=== PATIENT | female | born 1945 | race Caucasian/White ===

== ENCOUNTER 2018-10-10 22:44 | Inpatient (IN) | payer MEDICARE, MEDICAID, SELFPAY ==
[2018-10-10 22:45] VITALS: BP 177/87; PULSE 71; RESP 14; TEMP 36.8; O2SAT 97; BMI 40.3
[2018-10-10] MEDS: fentaNYL 100 MCG/2 ML Ampul 50 MCG IV (23:30)
[2018-10-10] MEDS: 0.9% Normal Saline 1,000 ML 150 ML IV (23:30)
[2018-10-10] MEDS: Ondansetron 4 MG/2 ML Vial IV (23:30)
--- NOTE | 2018-10-10 23:44 | ED.VISSUMM ---
- ER Visit Summary Date of Service: 10/10/18 Chief Complaint: Small bowel obstruction History of Present Illness: The patient is a 72 F who was sent from [facility] for partial small bowel obstruction. Dr. Carrillo requested the patient be seen in the ED. Patient reports developing abdominal pain, nausea, vomiting after eating canned sausage for lunch. Patient is poor historian. As best we can tell from patient and prior records she has a history of CHF, high cholesterol, hypertension, diabetes. She is a history of A. fib but not currently on anticoagulants. She has a history of left-sided breast cancer for which she underwent lumpectomy and endometrial cancer. She has had a full hysterectomy along with a cholecystectomy. Physical Examination: Blood pressure is 177/87, temperature 98.3, heart rate 71, respiratory rate 14, pulse ox 97% on room air. Patient sitting upright in bed she is very anxious. Heart is regular rate and rhythm. Lung sounds are clear. Abdomen is soft with mild diffuse tenderness. She has slight distention. Hypoactive bowel sounds noted. Test Results: Lab work and urinalysis from outside facility are reviewed. CT scan with contrast at outside hospital reveals partial small bowel obstruction. There is a fluid-filled dilated small bowel proximally. The transition point appears to be in the right pelvis. Surgical sutures associated with bowel at the transition point. Emergency Department Course and Treatment: Patient was ordered IV fluids, fentanyl, Zofran. Patient was seen in the ED by Dr. Carrillo will be admitted to his service on [facility]. Treatment Plan: [] Disposition: Admit Impression: Partial small bowel obstruction This note was generated with [employer] dictation software. It may contain incorrect words, spelling, and punctuation that were not noted in review of the chart prior to signing ED Disposition - Plan for ED Patient: Referrals: Chavez Luna MD [Primary Care Provider] -
--- NOTE | 2018-10-10 23:45 | PCM.HP.STD ---
Problem List (1) Small bowel obstruction Status: Acute History of Present Illness Date of Admission: 10/10/18 Chief Complaint: Abdominal pain and vomiting The patient is a 72 year old F was transferred from an outside emergency room for nausea and vomiting and abdominal pain. She reports she had some canned meat earlier today and about an hour after that she developed vomiting as well as lower abdominal pain. She says her last bowel movement was yesterday and she does not remember last time she passed gas. She says she has never had a bowel obstruction in the past. She is a very poor historian and does not remember her surgeries or much of her medical history. She has no recollection of her medications. She denies any dysuria or cough. Past Medical History Past Medical History (Chronic Problems): Chronic Problems Diabetes mellitus (Chronic) Obesity (Chronic) Hyperlipidemia (Chronic) Benign hypertension (Chronic) Allergies celecoxib [From Celebrex] Allergy (Verified 10/10/18 22:56) Anaphylaxis Penicillins Allergy (Verified 10/10/18 22:56) Rash rofecoxib [From Vioxx] Allergy (Verified 10/10/18 22:56) Anaphylaxis Home Medications: Ambulatory Orders Medication Instructions Recorded Atenolol 50 mg PO DAILY 10/28/15 Oxycodone HCl/Acetaminophen 1 - 2 tablet PO Q4H PRN PRN #30 10/29/15 [Percocet 5/325] tablet Aspirin [Aspirin, Baby] 81 mg PO DAILY@0800 04/08/16 Cholecalciferol (Vitamin D3) 50,000 unit PO QWEEK 04/08/16 [Vitamin D] Losartan/Hydrochlorothiazide 1 each PO DAILY 04/08/16 [Losartan-Hctz 50-12.5 mg Tab] Oxycodone HCl/Acetaminophen 1 - 2 tablet PO Q4H PRN PRN #12 04/08/16 [Percocet 5/325] tablet Tamoxifen Citrate [Nolvadex] 20 mg PO DAILY 04/08/16 predniSONE tablet 20 mg PO DAILY@0800 04/08/16 Surgical History: - - Patient is a very poor historian. She reports she has had 5 surgeries but does not member what they are. 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 Denies: Constipation, Diarrhea, Dyspepsia Genitourinary: Denies: Dysuria Musculoskeletal: Denies: Joint Tenderness Skin: Denies: Jaundice Neurological: Reports: Balance problems, Confusion. Denies: Headaches Unable to obtain accurate/complete ROS d/t: Patient is an extremely poor historian. VTE Information - Inpt Only VTE Present on Admission: No VTE Mechan Device Prophylaxis: SCD's Patient Problems: Active and Suspected Problems Small bowel obstruction (Acute) - Physical Exam General: Alert, No apparent distress, Confused HEENT: Atraumatic Oral: Dry Mucosa Neck: No JVD Lungs: Normal air movement Cardiovascular: Regular rate, Regular Rhythm Abdomen: Soft, Non-Distended, Tender - Diffusely mildly tender. No guarding or rebound. Extremities: No clubbing Skin: No rashes Musculoskeletal: No Muscle Wasting Neurological: Cranial nerves II-XII grossly intact Psych/Mental Status: Normal Affect Vital Signs Temp Pulse Resp BP Pulse Ox 98.3 F 71 14 177/87 H 97 10/10/18 22:45 10/10/18 22:45 10/10/18 22:45 10/10/18 22:45 10/10/18 22:45 Oxygen Delivery Method Room Air Weight: 250 lb Body Mass Index (BMI) 40.3 Assessment/Plan All Active Problems Small bowel obstruction (Acute) 72-year-old female with abdominal pain and vomiting 1. Patient was transferred from outside ER. She had labs done there that showed normal white count and an elevated creatinine of 1.4. Their clean catch was contaminated. They did a CT scan which showed mildly dilated loops of small bowel with a possible transition point in the right pelvis. I reviewed the CT scan her stomach does not look very distended nor does her proximal small bowel. 2. Patient may have small bowel obstruction, ileus, food poisoning. I am rechecking a UA and urine culture. Recheck labs in the morning as well as a KUB. I will keep her n.p.o. on IV fluids overnight. She is unable to recall her medication list but I did find recent refills on atenolol and losartan and I will start those up. No indication for emergent surgery at this time. Mateusz Carrillo MD Pager: [facility] [address] [place] [address], [address] [place] [address] Office:
--- NOTE | 2018-10-10 23:51 | HP.PCM_ITS ---
Problem List (1) Small bowel obstruction Status: Acute History of Present Illness Date of Admission: 10/10/18 Chief Complaint: Abdominal pain and vomiting The patient is a 72 year old F was transferred from an outside emergency room for nausea and vomiting and abdominal pain. She reports she had some canned meat earlier today and about an hour after that she developed vomiting as well as lower abdominal pain. She says her last bowel movement was yesterday and she does not remember last time she passed gas. She says she has never had a bowel obstruction in the past. She is a very poor historian and does not remember her surgeries or much of her medical history. She has no recollection of her medications. She denies any dysuria or cough. Past Medical History Past Medical History (Chronic Problems): Chronic Problems Diabetes mellitus (Chronic) Obesity (Chronic) Hyperlipidemia (Chronic) Benign hypertension (Chronic) Allergies celecoxib [From Celebrex] Allergy (Verified 10/10/18 22:56) Anaphylaxis Penicillins Allergy (Verified 10/10/18 22:56) Rash rofecoxib [From Vioxx] Allergy (Verified 10/10/18 22:56) Anaphylaxis Home Medications: Ambulatory Orders Medication Instructions Recorded Atenolol 50 mg PO DAILY 10/28/15 Oxycodone HCl/Acetaminophen 1 - 2 tablet PO Q4H PRN PRN #30 10/29/15 [Percocet 5/325] tablet Aspirin [Aspirin, Baby] 81 mg PO DAILY@0800 04/08/16 Cholecalciferol (Vitamin D3) 50,000 unit PO QWEEK 04/08/16 [Vitamin D] Losartan/Hydrochlorothiazide 1 each PO DAILY 04/08/16 [Losartan-Hctz 50-12.5 mg Tab] Oxycodone HCl/Acetaminophen 1 - 2 tablet PO Q4H PRN PRN #12 04/08/16 [Percocet 5/325] tablet Tamoxifen Citrate [Nolvadex] 20 mg PO DAILY 04/08/16 predniSONE tablet 20 mg PO DAILY@0800 04/08/16 Surgical History: - - Patient is a very poor historian. She reports she has had 5 surgeries but does not member what they are. 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 Denies: Constipation, Diarrhea, Dyspepsia Genitourinary: Denies: Dysuria Musculoskeletal: Denies: Joint Tenderness Skin: Denies: Jaundice Neurological: Reports: Balance problems, Confusion. Denies: Headaches Unable to obtain accurate/complete ROS d/t: Patient is an extremely poor historian. VTE Information - Inpt Only VTE Present on Admission: No VTE Mechan Device Prophylaxis: SCD's Patient Problems: Active and Suspected Problems Small bowel obstruction (Acute) - Physical Exam General: Alert, No apparent distress, Confused HEENT: Atraumatic Oral: Dry Mucosa Neck: No JVD Lungs: Normal air movement Cardiovascular: Regular rate, Regular Rhythm Abdomen: Soft, Non-Distended, Tender - Diffusely mildly tender. No guarding or rebound. Extremities: No clubbing Skin: No rashes Musculoskeletal: No Muscle Wasting Neurological: Cranial nerves II-XII grossly intact Psych/Mental Status: Normal Affect Vital Signs Temp Pulse Resp BP Pulse Ox 98.3 F 71 14 177/87 H 97 10/10/18 22:45 10/10/18 22:45 10/10/18 22:45 10/10/18 22:45 10/10/18 22:45 Oxygen Delivery Method Room Air Weight: 250 lb Body Mass Index (BMI) 40.3 Assessment/Plan All Active Problems Small bowel obstruction (Acute) 72-year-old female with abdominal pain and vomiting 1. Patient was transferred from outside ER. She had labs done there that showed normal white count and an elevated creatinine of 1.4. Their clean catch was contaminated. They did a CT scan which showed mildly dilated loops of small bowel with a possible transition point in the right pelvis. I reviewed the CT scan her stomach does not look very distended nor does her proximal small bowel. 2. Patient may have small bowel obstruction, ileus, food poisoning. I am rechecking a UA and urine culture. Recheck labs in the morning as well as a KUB. I will keep her n.p.o. on IV fluids overnight. She is unable to recall her medication list but I did find recent refills on atenolol and losartan and I will start those up. No indication for emergent surgery at this time. Mateusz Carrillo MD Pager: [facility] [address] [place] [address], [address] [place] [address] Office:
[2018-10-11 00:10] LABS: Mucous, Urine 0 SEEN /hpf (<or=2+); Red Blood Cells-Urine 0 SEEN /hpf (0-5); Squamous Epithelial Cells - UA 0 SEEN /hpf (5-10)
[2018-10-11 00:12] LABS: Color, Urine Yellow (Yellow); Glucose, Dipstick Normal (Normal); Ketone-Dipstick Negative (Negative); Leukocyte Esterase-Dipstick 500 /ul (Negative); Nitrite-Dipstick Negative (Negative); Occult Blood-Urine 25 /ul (Negative); Protein-Dipstick Negative (Negative); Specific Gravity, Urine 1.015 (1.002-1.030); Urine Bilirubin Dipstick Negative (Negative); Urine Clarity Sl. Cloudy (Clear); Urine Urobilinogen Normal (Normal)
[2018-10-11 00:35] VITALS: BMI 34.7; BMI 34.8
[2018-10-11 00:35] LABS: Bacteria 4+ /hpf (None Seen); White Blood Cells 10-25 SEEN /hpf (0-5)
[2018-10-11 00:45] VITALS: BP 127/64; PULSE 70; RESP 18; TEMP 36.7; O2SAT 98
[2018-10-11] MEDS: Morphine 2 MG/ML Syringe IV ×4 (00:57→20:31)
[2018-10-11] MEDS: 0.9% Saline Lock 10 ML Syringe IV (01:24)
[2018-10-11] MEDS: 0.9% Normal Saline 1,000 ML 999 ML IV (01:24)
[2018-10-11 01:44] LABS: Absolute Neutrophil Count 6.7 X10^3/uL (2.0-7.7); Basophil# 0.03 X10^3/uL; Basophil% 0.4 % (0-1); Eosinophils% 1.3 % (0-5); Hematocrit 32.1 % (37-47); Hemoglobin 10.2 g/dl (12.0-15.0); Lymphocyte % 6.3 % (19-41); Mean Corp Hgb Conc 31.8 g/gl (32-36); Mean Corpuscular Hgb 29.4 pg (27.0-32.0); Mean Corpuscular Volume 92.5 fL (81-99); Mean Platelet Vol. 10.1 fl (6.2-12.0); Monocyte# 0.54 X10^3/uL; Monocyte% 6.8 % (0-10); Neutrophil # 6.74 X10^3/uL (2.7-7.7); Neutrophil % 84.9 % (47-70); Platelet Count 176 K/mm3 (150-450); RBC Distribution Width CV 13.4 % (11.6-14.6); RBC Distribution Width SD 43.5 fl (35.1-43.9); Red Blood Count 3.47 M/mm3 (4.2-5.4); White Blood Count 7.9 K/mm3 (4.4-11.0)
[2018-10-11 01:45] LABS: Differential Indicated SCAN CRITERIA MET; POSITIVE COUNT NO; POSITIVE DIFFERENTIAL YES; POSITIVE MORPHOLOGY NO
[2018-10-11 01:53] LABS: AST(SGOT) 15 U/L (15-37); Alanine Aminotransfer ALT/SGPT 14 U/L (13-56); Alkaline Phosphatase 61 U/L (45-117); Anion Gap 6 (5-15); BUN 28 mg/dL (7-18); BUN/Creat Ratio 22.8 RATIO (10-20); Chloride 110 mmol/L (98-107); Creatinine, Serum 1.23 mg/dL (0.55-1.02); EST Glomerular Filtration Rate 45 mL/min (>60); Est Glom Filt Rate - Afr Amer 55 mL/min (>60); Estimated Creatinine Clearance 37.56 ml/min; Globulin 3.1 g/dL (2.2-4.2); Glucose 118 mg/dL (74-106); Potassium 3.9 mmol/L (3.5-5.1); Protein, Total 6.1 g/dL (6.4-8.2); Sodium Level 141 mmol/L (136-145)
[2018-10-11 04:40] VITALS: BP 140/62; PULSE 69; RESP 16; TEMP 36.5; O2SAT 99
--- NOTE | 2018-10-11 05:55 | RAD_ITS ---
STUDY: X-RAY - ABDOMEN/PELVIS REASON FOR EXAM: Female, 72 years old. Ileus versus small bowel obstruction. TECHNIQUE: Two AP supine views of the abdomen and pelvis. COMPARISON: None. FINDINGS: Elevation of the right hemidiaphragm. There is an unremarkable bowel gas pattern. The patient is status post cholecystectomy. Findings suggestive of a right-sided staghorn calculus. Contrast is seen within the urinary bladder most likely from intravenous contrast administration. There are diffuse degenerative changes of the visualized lumbar spine. RAD/Abdomen Single View (Portable) IMPRESSION: Nonspecific bowel gas pattern. Findings suggestive of a right sided staghorn calculus. Electronically Signed: Bhanu Sellers, at 9:16 EDT , Service support ,
[2018-10-11] MEDS: Ondansetron 4 MG/2 ML Vial IV ×3 (06:56→20:30)
[2018-10-11] MEDS: 0.9% Normal Saline 1,000 ML 125 ML IV ×2 (06:56→20:59)
[2018-10-11] MEDS: 0.9% NaCl Peripheral Flush Adult/Peds IV (06:57)
--- NOTE | 2018-10-11 08:07 | PCM.PN.SRG ---
Patient Problems: Active and Suspected Problems Small bowel obstruction (Acute) Subjective: Patient told the overnight nurse that she was passing flatus and she is not having any nausea this morning. She is still complaining of abdominal pain. - Physical Exam General: Alert, No apparent distress Neck: No JVD Lungs: Normal air movement Cardiovascular: Regular rate, Regular Rhythm Abdomen: Soft, Non-Distended, Tender Vital Signs Temp Pulse Resp BP Pulse Ox 97.7 F L 69 16 140/62 H 99 10/11/18 04:40 10/11/18 04:40 10/11/18 04:40 10/11/18 04:40 10/11/18 04:40 Oxygen Delivery Method Room Air Weight: 215 lb 6.266 oz Body Mass Index (BMI) 34.7 Intake and Output for Last 24 Hours 10/09/18 10/10/18 10/11/18 23:59 23:59 23:59 Intake Total 1539 / 1539 Balance 1539 / 1539 Laboratory Tests Past 24 Hrs 10/11/18 10/11/18 10/11/18 00:02 00:10 00:10 WBC Cancelled Corrected WBC Cancelled RBC Cancelled Hgb Cancelled Hct Cancelled MCV Cancelled MCH Cancelled MCHC Cancelled RDW Cancelled RDW Differential Cancelled Plt Count Cancelled MPV Cancelled Immature Gran % (Auto) Cancelled Neut % (Auto) Cancelled Lymph % (Auto) Cancelled Howell % (Auto) Cancelled Eos % (Auto) Cancelled Baso % (Auto) Cancelled Immature Gran # (Auto) Cancelled Absolute Neuts (auto) Cancelled Absolute Lymphs (auto) Cancelled Absolute Monos (auto) Cancelled Total Counted Cancelled Neutrophils % (Manual) Cancelled Band Neutrophils % Cancelled Lymphocytes % (Manual) Cancelled Monocytes % (Manual) Cancelled Eosinophils % (Manual) Cancelled Basophils % (Manual) Cancelled Metamyelocytes % Cancelled Myelocytes % Cancelled Promyelocytes % Cancelled Blast Cells % Cancelled Plasma Cell % (Manual) Cancelled Other Cells % Cancelled Lymphocytes # Cancelled Nucleated RBCs/100 WBC Cancelled Differential Comment Cancelled Diff Path Review Cancelled Hypersegmented Neuts Cancelled Atypical Lymphocytes Cancelled Reactive Lymphocytes Cancelled Smudge Cells Cancelled Eosinophilia # Cancelled Basophilia # Cancelled Toxic Granulation Cancelled Dohle Bodies Cancelled Jackeline Rods Cancelled Platelet Estimate Cancelled Plt Morphology Comment Cancelled RBC Morphology Cancelled Polychromasia Cancelled Hypochromasia Cancelled Poikilocytosis Cancelled Basophilic Stippling Cancelled Anisocytosis Cancelled Microcytosis Cancelled Macrocytosis Cancelled Spherocytes Cancelled Sickle Cells Cancelled Target Cells Cancelled Tear Drop Cells Cancelled Ovalocytes Cancelled Stomatocytes Cancelled [place] Bodies Cancelled [place] Cells Cancelled Bite Cells Cancelled Acanthocytes (Spur) Cancelled Rouleaux Cancelled Schistocytes Cancelled Sodium Cancelled Potassium Cancelled Chloride Cancelled Carbon Dioxide Cancelled Anion Gap Cancelled BUN Cancelled Creatinine Cancelled Estim Creat Clear Calc Cancelled Est GFR (MDRD) Af Amer Cancelled Est GFR (MDRD) Non-Af Cancelled BUN/Creatinine Ratio Cancelled Glucose Cancelled Calcium Cancelled Phosphorus Cancelled Magnesium Cancelled Total Bilirubin Cancelled AST Cancelled ALT Cancelled Alkaline Phosphatase Cancelled Total Protein Cancelled Albumin Cancelled Globulin Cancelled Albumin/Globulin Ratio Cancelled Urine Color Yellow Urine Clarity Sl. Cloudy Urine pH 5.0 Ur Specific [place] 1.015 Urine Protein Negative Urine Glucose (UA) Normal Urine Ketones Negative Urine Occult Blood 25 H Urine Nitrite Negative Urine Bilirubin Negative Urine Urobilinogen Normal Ur Leukocyte Esterase 500 H Urine RBC 0 SEEN Urine WBC 10-25 SEEN Ur Squamous Epith Cells 0 SEEN Urine Bacteria 4+ Urine Mucus 0 SEEN 10/11/18 10/11/18 01:20 01:20 WBC 7.9 Corrected WBC RBC 3.47 L Hgb 10.2 L Hct 32.1 L MCV 92.5 MCH 29.4 MCHC 31.8 L RDW 13.4 RDW Differential 43.5 Plt Count 176 MPV 10.1 Immature Gran % (Auto) 0.300 Neut % (Auto) 84.9 H Lymph % (Auto) 6.3 L Howell % (Auto) 6.8 Eos % (Auto) 1.3 Baso % (Auto) 0.4 Immature Gran # (Auto) Absolute Neuts (auto) 6.7 Absolute Lymphs (auto) 0.50 L Absolute Monos (auto) Total Counted Not Reportable Neutrophils % (Manual) Band Neutrophils % Lymphocytes % (Manual) Monocytes % (Manual) Eosinophils % (Manual) Basophils % (Manual) Metamyelocytes % Myelocytes % Promyelocytes % Blast Cells % Plasma Cell % (Manual) Other Cells % Lymphocytes # Nucleated RBCs/100 WBC Differential Comment Diff Path Review Hypersegmented Neuts Atypical Lymphocytes Reactive Lymphocytes Smudge Cells Eosinophilia # Basophilia # Toxic Granulation Dohle Bodies Jackeline Rods Platelet Estimate Plt Morphology Comment RBC Morphology Polychromasia Hypochromasia Poikilocytosis Basophilic Stippling Anisocytosis Microcytosis Macrocytosis Spherocytes Sickle Cells Target Cells Tear Drop Cells Ovalocytes Stomatocytes [place] Bodies [place] Cells Bite Cells Acanthocytes (Spur) Rouleaux Schistocytes Sodium 141 Potassium 3.9 Chloride 110 H Carbon Dioxide 25.0 Anion Gap 6 BUN 28 H Creatinine 1.23 H Estim Creat Clear Calc 37.56 Est GFR (MDRD) Af Amer 55 L Est GFR (MDRD) Non-Af 45 L BUN/Creatinine Ratio 22.8 H Glucose 118 H Calcium 8.0 L Phosphorus 3.0 Magnesium 2.0 Total Bilirubin 0.40 AST 15 ALT 14 Alkaline Phosphatase 61 Total Protein 6.1 L Albumin 3.0 L Globulin 3.1 Albumin/Globulin Ratio 1.0 Urine Color Urine Clarity Urine pH Ur Specific [place] Urine Protein Urine Glucose (UA) Urine Ketones Urine Occult Blood Urine Nitrite Urine Bilirubin Urine Urobilinogen Ur Leukocyte Esterase Urine RBC Urine WBC Ur Squamous Epith Cells Urine Bacteria Urine Mucus Medical Necessity - Tobacco Use Smoking Status: Never smoker Assessment/Plan All Active Problems Small bowel obstruction (Acute) 72-year-old female small bowel obstruction versus ileus 1. Patient is not having any nausea and her KUB from this morning shows gas in the colon. She told the overnight nurse she is passing gas. I will order Gastrografin small bowel follow-through to ensure that she is not having a partial obstruction. Patient may also be having an ileus. Her dilation of her small bowel is very mild and it could also be gastroenteritis. 2. The patient's UA showed leukoesterase as well as WBC. Culture is pending. I will empirically start her on IV Cipro for UTI. Mateusz Carrillo MD Pager: [facility] [address] [place] [address], [address] [place] [address] Office:
[2018-10-11 09:00] VITALS: BP 155/62; PULSE 69; RESP 16; TEMP 36.3; O2SAT 99
[2018-10-11] MEDS: Ciprofloxacin 400 MG/200 ML BAG 200 MG IV ×2 (09:12→21:00)
--- NOTE | 2018-10-11 10:30 | NURSING ---
pt off floor at this time for small bowel series
--- NOTE | 2018-10-11 10:35 | RAD_ITS ---
CLINICAL HISTORY: Female, 72 years old. Possible bowel obstruction. PROCEDURE: The patient ingested 150 mL of Gastrografin and 150 mL of water. A small bowel follow-through examination was then obtained. 11 images were obtained. Findings: On the oceanographer assistant film, small amount of gas is seen within the colon. Contrast is seen within the urinary bladder from prior intravenous contrast menstruation. Amorphous calcifications are seen in the left mid abdomen most likely secondary to a staghorn calculus. There is evidence of multilevel disc space narrowing and spondylosis. There is distention of the stomach with the ingested Gastrografin. There is delayed transit throughout the small bowel. Imaging was obtained up to 2 hours following ingestion of oral contrast. Contrast is seen in the distal small bowel. The patient refused further imaging. RAD/Small Bowel Series Only IMPRESSION: Distention of the stomach with the ingested Gastrografin. Small amount of oral contrast is seen within slightly dilated small bowel loops as described. Gastric outlet obstruction or gastroparesis should be ruled out. Electronically Signed: Bhanu Sellers, at 15:23 EDT , Service support ,
[2018-10-11 14:19] VITALS: BP 149/56; PULSE 68; RESP 14; TEMP 36.8; O2SAT 95
[2018-10-11] MEDS: hydroCHLOROthiazide 12.5mg 12.5 MG PO (14:25)
[2018-10-11] MEDS: Losartan Potassium 50 MG Tablet PO (14:26)
[2018-10-11] MEDS: Atenolol 50 MG Tablet PO (14:26)
--- NOTE | 2018-10-11 16:41 | CHAPLAIN ---
patient was out of her room at time of attempted visit
[2018-10-11 20:20] VITALS: BP 158/74; PULSE 70; RESP 16; TEMP 37.2; O2SAT 97
[2018-10-11 22:37] VITALS: PULSE 70; RESP 16; O2SAT 97
[2018-10-12] VITALS (11 sets, daily range): BP systolic 119–150; BP diastolic 55–88; PULSE 66–78; RESP 16–18; TEMP 36.8–37.4; O2SAT 94–99
--- NOTE | 2018-10-12 00:21 | NURSING ---
pt confused, pulled her iv out and took all her clothes off. inc of urine, nilda care given. vomiting, and stating she feels awful. will call dr. tang
[2018-10-12] MEDS: proMETHazine 25 MG/ML Syringe 12.5 MG IV (01:13)
[2018-10-12] MEDS: DiphenhydrAMINE 50 MG/ML Syringe 25 MG IV ×2 (01:31→08:51)
--- NOTE | 2018-10-12 01:45 | NURSING ---
DR GARCIA CALLED, ORDERED, AN NG TO BE PLACED TO LIS. ADITI AND MAMI ALSO GIVEN PER ORDER.
--- NOTE | 2018-10-12 02:05 | RAD_ITS ---
STUDY: X-RAY - ABDOMEN/PELVIS REASON FOR EXAM: Female, 72 years old. Nasogastric tube placement. TECHNIQUE: Single AP view of the abdomen / pelvis. COMPARISON: None. FINDINGS: The tip of the nasogastric tube is within the body of the stomach. Oral contrast is seen within the left hemicolon. RAD/Abdomen Single View (Portable) IMPRESSION: The tip of the nasogastric tube is in the body of the stomach. Electronically Signed: Bhanu Sellers, at 8:44 EDT , Service support ,
--- NOTE | 2018-10-12 02:43 | NURSING ---
called dr. flood for soft wrist restraints d/t the pt being confused and trying to pull the ng out
--- NOTE | 2018-10-12 03:00 | NURSING ---
PT PLACED IN SOFT WRIST RESTRAINTS TO PREVENT HER FORM PULLING CHANTELLE NG OUT D/T CONFUSION. PTS SON CALLED BACK AND WAS NOTIFIED OF THE NEED TO PLACE THE PT IN RESTRAINTS.
[2018-10-12] MEDS: Morphine 2 MG/ML Syringe IV (03:20)
[2018-10-12 05:27] LABS: Absolute Lymphocyte Count 0.45 X10^3/ul (0.83-4.51); Absolute Neutrophil Count 9.7 X10^3/uL (2.0-7.7); Basophil# 0.01 X10^3/uL; Basophil% 0.1 % (0-1); Hematocrit 32.1 % (37-47); Hemoglobin 10.8 g/dl (12.0-15.0); Lymphocyte # 0.45 X10^3/ul (4.0); Lymphocyte % 4.1 % (19-41); Mean Corp Hgb Conc 33.6 g/gl (32-36); Mean Corpuscular Hgb 29.8 pg (27.0-32.0); Mean Corpuscular Volume 88.7 fL (81-99); Mean Platelet Vol. 9.9 fl (6.2-12.0); Monocyte# 0.77 X10^3/uL; Neutrophil # 9.73 X10^3/uL (2.7-7.7); Neutrophil % 88.6 % (47-70); Platelet Count 190 K/mm3 (150-450); RBC Distribution Width CV 13.6 % (11.6-14.6); RBC Distribution Width SD 44.5 fl (35.1-43.9); Red Blood Count 3.62 M/mm3 (4.2-5.4)
[2018-10-12 05:32] LABS: Differential Indicated SCAN CRITERIA MET; POSITIVE COUNT NO; POSITIVE DIFFERENTIAL YES; POSITIVE MORPHOLOGY NO
[2018-10-12 05:43] LABS: Anion Gap 8 (5-15); BUN 24 mg/dL (7-18); BUN/Creat Ratio 22.2 RATIO (10-20); Calcium,Total 8.6 mg/dL (8.5-10.1); Chloride 113 mmol/L (98-107); Creatinine, Serum 1.08 mg/dL (0.55-1.02); EST Glomerular Filtration Rate 53 mL/min (>60); Est Glom Filt Rate - Afr Amer 64 mL/min (>60); Estimated Creatinine Clearance 42.78 ml/min; Glucose 136 mg/dL (74-106); Potassium 3.5 mmol/L (3.5-5.1); Sodium Level 142 mmol/L (136-145)
--- NOTE | 2018-10-12 05:55 | RAD_ITS ---
STUDY: X-RAY - ABDOMEN/PELVIS REASON FOR EXAM: Female, 72 years old. Small bowel obstruction. TECHNIQUE: Two AP supine views of the abdomen and pelvis. COMPARISON: Comparison is made with prior examination done earlier today. FINDINGS: The tip of the nasogastric tube is in the body of the stomach. Contrast is seen within the colon. Residual contrast filled slightly dilated small bowel loops. This may represent an ileus pattern. The visualized liver, spleen and kidneys are grossly normal in size and morphology. There is evidence of prior ventral hernia repair with a mesh. There are diffuse degenerative changes of the visualized lumbar spine. RAD/Abdomen Single View (Portable) IMPRESSION: Oral contrast is seen throughout the colon. Residual contrast is seen within slightly dilated small bowel loops. This may represent an ileus pattern. Electronically Signed: Bhanu Sellers, at 13:33 EDT , Service support ,
[2018-10-12] MEDS: 0.9% Normal Saline 1,000 ML 125 ML IV (06:43)
[2018-10-12] MEDS: 0.9% NaCl Peripheral Flush Adult/Peds IV (08:52)
--- NOTE | 2018-10-12 09:27 | CON.PCM_ITS ---
Problem List (1) Altered mental status Status: Acute (2) Normochromic normocytic anemia Status: Acute (3) UTI (urinary tract infection) Status: Acute (4) Small bowel obstruction Status: Acute (5) Benign hypertension Status: Chronic (6) Diabetes mellitus Status: Chronic Qualifiers: Diabetes mellitus type: type 2 (7) Hyperlipidemia Status: Chronic (8) Obesity Status: Chronic Qualifiers: Obesity type: due to excess calories Obesity classification: adult class 1 (BMI 30 - 34.9) (9) Breast cancer in situ Status: Chronic Qualifiers: Carcinoma in situ of breast type: intraductal Laterality: right Qualified Code(s): 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 Carrillo for confusion - Reason for Consult The patient is a 72-year-old female admitted to [facility] from the [facility] emergency department on 10/10/2018 with complaints of sudden onset of nausea/vomiting/abdominal pain. She was admitted by Dr. Carrillo. She had eaten some canned meat earlier in the day and approximately 1 hour after eating developed vomiting and lower abdominal pain. She was a poor historian and was unable to remember her medications, her medical history or her previous surgeries. Her past medical history is significant for diabetes mellitus type 2, morbid obesity, hyperlipidemia, ductal carcinoma of the left breast diagnosed in 2010 and ductal carcinoma in situ of the right breast diagnosed in 2014, uterine cancer (status post ALEXIS/BSO) and HTN. Vital signs at admission to the hospital were temp 98.3, pulse rate 71, blood pressure 177/87, respiratory rate 14 and she was 97-99% saturated on room air. Lab on 10/11/2018 showed a white blood cell count of 7.9 with 85% neutrophils. Hemoglobin was 10.2 with normochromic normocytic indices and a normal RDW. BUN was elevated at 28 and the creatinine was 1.23 and we have no baseline labs on this patient. Phosphorus and magnesium were within normal limits and the LFTs were unremarkable. A straight cath was performed for UA and it showed positive leukocyte esterase 10-25 WBCs per high-power field and 4+ bacteria. Urine was sent for culture. She was started on Cipro on 10/11/2018. A CT scan of the abdomen at the emergency department showed a partial small bowel obstruction with transition in the right pelvis. Incidental findings were a left renal cyst and a 9.0 cm right renal mass. A Gastrografin study was ordered by Dr. Carrillo and showed delayed transit but on KUB today there is contrast in the colon. She had a BM while I was in the room. She has become progressively more confused and agitated in the hospital. Has been getting MS about every 6-7 hours. I reviewed recent progress notes from Dr. Ahumada and will request records from her PCP, Chavez Luna. The patient is restrained and agitated. She is having visual hallucinations and talking to people who are not there. Tells me that she is at home. She can tell me her name and her age but, can not tell me the year or the date. MM are very dry, no mucosal lesions noted. No JVD, trachea midline, no cervical or supraclavicular nodes Lying flat in be without accessory muscle use or conversational dyspnea Lungs are CTA anterior and lateral. Heart - RRR, no MM appreciated but, difficult to hear over the patient talking. No gallop abdomen - soft, ND, no guarding with palpation, no masses. She had a liquid brown stool while I was in the room. No edema, no clubbing, cyanosis Skin-no rashes Neuro-moving all 4 extremities, no facial asymmetry, cranial nerves II through XII grossly intact, no focal neurologic deficits Confused, having visual hallucinations Impressions 1. pSBO vs ileus - being managed by Dr. Carrillo 2. UTI 3. delirium vs dementia with sundowning 4. History of left breast cancer diagnosed in 2010 and right breast cancer diagnosed in 2014. 5. History of uterine cancer-status post ALEXIS/BSO 6. Diabetes mellitus type 2 7. Hypertension 8. Normochromic normocytic anemia of uncertain etiology 9. Hyperlipidemia 10. Dehydration DC the Cipro and start rocephin - Cipro can increase confusion in the elderly Blood cultures, lactic acid now TSH, ammonia....will need a noncontrasted CTB when we get her calmed down Haldol 2 mg IV every 4 hours as needed agitation/delirium EKG now to evaluate QT interval Place the patient on telemetry Accu-Cheks every 6 hours with sliding scale insulin coverage Hemoccult stool Enteric pathogen panel Fecal leukocytes Recheck lab in the a.m. We will attempt to reach her son to discuss her baseline mental status Discussed with Dr. Carrillo
--- NOTE | 2018-10-12 09:56 | EKG12_ITS ---
Test Reason : HTN Blood Pressure : / mmHG Vent. Rate : 071 BPM Atrial Rate : 133 BPM P-R Int : 000 ms QRS Dur : 196 ms QT Int : 480 ms P-R-T Axes : 000 -64 101 degrees QTc Int : 521 ms Sinus tachycardia with complete heart block and Ventricular-paced rhythm Abnormal ECG When compared with ECG of 15-JUN-2011 10:49, Electronic ventricular pacemaker has replaced Atrial fibrillation Confirmed by TWYLA CALIX, LOUANN ([id number]), image editor ENRRIQUE ANGULO ([id number]) on 10/14/2018 1:50:22 PM Referred By: CHUYITA Confirmed By:LOUANN WAKEFIELD MD
--- NOTE | 2018-10-12 10:02 | RAD_ITS ---
STUDY: X-RAY CHEST REASON FOR EXAM: Female, 72 years old. Tachypnea. TECHNIQUE: Single AP portable view of the chest. COMPARISON: None. FINDINGS: Telemetry wires overlie the chest. There is an enteric tube extending down the esophagus and some left upper quadrant of the abdomen The lungs are mildly hypoexpanded. There is mild interstitial coarsening throughout both lungs most marked in the upper lobes. There is no demonstrated pleural abnormality. Normal size heart. Is a left-sided dual lead cardiac pacemaker. Normal mediastinum. There is mild hilar prominence. There is atherosclerotic calcification of the aortic arch with tortuosity. The thoracic spine is obscured by the mediastinum. There is degenerative osteoarthritis of the bilateral shoulders. There is no demonstrated abnormality of the visualized soft tissue structures of the upper abdomen. RAD/Chest 1 View (Portable) IMPRESSION: 1. Cardiac pacemaker. 2. Enteric tube as described. 3. Acute versus chronic interstitial changes. 4. Mild hilar prominence. Question lymphadenopathy. Electronically Signed: Kana Nava DO at 14:10 EDT Tel [phone], Service support ,
--- NOTE | 2018-10-12 10:36 | CASEMGMT ---
GABY ESPINOZA unable to complete CM assessment at this time d/t confusion/agitation at this time. Will attempt again later. Dr. Black did place call to son in [place] today and he states his brother, Alejandro, had in June and he was up here at that time and pt had some confusion then. [place] GABY ESPINOZA
--- NOTE | 2018-10-12 10:47 | PCM.PN.SRG ---
Patient Problems: Active and Suspected Problems Small bowel obstruction (Acute) Altered mental status (Acute) Normochromic normocytic anemia (Acute) UTI (urinary tract infection) (Acute) Breast cancer, left (Acute) 2010 treated with lobectomy, sentinel node biopsy, chemotherapy Subjective: Patient became more disoriented overnight. NG was placed after patient vomited. Patient had a bowel movement today. She complains of no abdominal pain or nausea now the NG is in. - Physical Exam General: No apparent distress, Confused, Disoriented Neck: No JVD Cardiovascular: Regular rate, Regular Rhythm Abdomen: Soft, Non Tender, Non-Distended Extremities: No clubbing Neurological: Cranial nerves II-XII grossly intact Vital Signs Temp Pulse Resp BP Pulse Ox 99.3 F H 71 18 130/88 H 94 10/12/18 07:00 10/12/18 07:00 10/12/18 07:00 10/12/18 07:00 10/12/18 07:00 Oxygen Delivery Method Room Air Weight: 215 lb 6.266 oz Body Mass Index (BMI) 34.7 Intake and Output for Last 24 Hours 10/10/18 10/11/18 10/12/18 23:59 23:59 23:59 Intake Total 2399 / 2399 513 / 513 Output Total 1350 / 1350 Balance 2379 / 2379 -837 / -837 Microbiology Past 72 Hours 10/11/18 00:02 Urine Culture - Preliminary Urine, Catheterized Culture exhibits no growth. 10/12/18 09:57 Stool Lactoferrin - Final Stool 10/12/18 09:57 Stool Occult Blood (AGNIESZKA) - Final Stool Laboratory Tests Past 24 Hrs 10/12/18 10/12/18 10/12/18 04:56 04:56 04:56 WBC 11.0 RBC 3.62 L Hgb 10.8 L Hct 32.1 L MCV 88.7 MCH 29.8 MCHC 33.6 RDW 13.6 RDW Differential 44.5 H Plt Count 190 MPV 9.9 Immature Gran % (Auto) 0.200 Neut % (Auto) 88.6 H Lymph % (Auto) 4.1 L [place] % (Auto) 7.0 Eos % (Auto) 0.0 Baso % (Auto) 0.1 Absolute Neuts (auto) 9.7 H Absolute Lymphs (auto) 0.45 L Total Counted Not Reportable Sodium 142 Potassium 3.5 Chloride 113 H Carbon Dioxide 21.0 Anion Gap 8 BUN 24 H Creatinine 1.08 H Estim Creat Clear Calc 42.78 Est GFR (MDRD) Af Amer 64 Est GFR (MDRD) Non-Af 53 L BUN/Creatinine Ratio 22.2 H Glucose 136 H Calcium 8.6 TSH Pending Free T4 Pending Clinical Impression(s) from Imaging Studies Small Bowel X-Ray 10/11/18 10:35 IMPRESSION: Distention of the stomach with the ingested Gastrografin. Small amount of oral contrast is seen within slightly dilated small bowel loops as described. Gastric outlet obstruction or gastroparesis should be ruled out. Electronically Signed: Bhanu Sellers, at 15:23 EDT , Service support , KUB X-Ray 10/12/18 02:05 IMPRESSION: The tip of the nasogastric tube is in the body of the stomach. Electronically Signed: Bhanu Sellers, at 8:44 EDT , Service support , Medical Necessity - Tobacco Use Smoking Status: Never smoker Assessment/Plan All Active Problems Small bowel obstruction (Acute) Altered mental status (Acute) Normochromic normocytic anemia (Acute) UTI (urinary tract infection) (Acute) Breast cancer, left (Acute) 72-year-old female ileus versus small bowel obstruction 1. Patient had contrast study that was done yesterday which did not show contrast progressing. I had planned on taking her for surgery today but on this morning's x-ray the contrast was completely in the colon and she did have a bowel movement this morning. On physical exam her abdomen is soft, nontender, nondistended. NG did put out bilious material. 2. The patient became more confused and disoriented. Given the fact that her white count did go up and she does have a left shift and her UA on admission showed bacteria. I am concerned that there may be some element of UTI going on. I started her on Cipro but that will be changed today as it is not helping. I did consult the hospitalist service for assistance with medical management. 3. Patient may be having an ileus from another infection versus partial small bowel obstruction. As the patient is in no distress with normal vitals and a nontender abdomen I will wait 24 more hours to make that decision. If the ceftriaxone helps and she continues to have bowel function I will see how she does. If anything changes overnight or fails to improve I will take her tomorrow for surgery. I discussed my plan with the patient's son and he is in agreement. Mateusz Carrillo MD Pager: [facility] [address] [place] [address], [address] [place] [address] Office:
[2018-10-12 10:48] LABS: T4 Free Direct 1.22 ng/dL (0.76-1.46)
[2018-10-12] MEDS: Atenolol 50 MG Tablet PO (10:48)
[2018-10-12] MEDS: Losartan Potassium 50 MG Tablet PO (10:48)
[2018-10-12] MEDS: Haloperidol Lactate 5 MG/ML Vial 2 MG IV ×2 (10:49→15:16)
--- NOTE | 2018-10-12 10:51 | PN.SURG_ITS ---
Patient Problems: Active and Suspected Problems Small bowel obstruction (Acute) Altered mental status (Acute) Normochromic normocytic anemia (Acute) UTI (urinary tract infection) (Acute) Breast cancer, left (Acute) 2010 treated with lobectomy, sentinel node biopsy, chemotherapy Subjective: Patient became more disoriented overnight. NG was placed after patient vomited. Patient had a bowel movement today. She complains of no abdominal pain or nausea now the NG is in. - Physical Exam General: No apparent distress, Confused, Disoriented Neck: No JVD Cardiovascular: Regular rate, Regular Rhythm Abdomen: Soft, Non Tender, Non-Distended Extremities: No clubbing Neurological: Cranial nerves II-XII grossly intact Vital Signs Temp Pulse Resp BP Pulse Ox 99.3 F H 71 18 130/88 H 94 10/12/18 07:00 10/12/18 07:00 10/12/18 07:00 10/12/18 07:00 10/12/18 07:00 Oxygen Delivery Method Room Air Weight: 215 lb 6.266 oz Body Mass Index (BMI) 34.7 Intake and Output for Last 24 Hours 10/10/18 10/11/18 10/12/18 23:59 23:59 23:59 Intake Total 2399 / 2399 513 / 513 Output Total 1350 / 1350 Balance 2379 / 2379 -837 / -837 Microbiology Past 72 Hours 10/11/18 00:02 Urine Culture - Preliminary Urine, Catheterized Culture exhibits no growth. 10/12/18 09:57 Stool Lactoferrin - Final Stool 10/12/18 09:57 Stool Occult Blood (AGNIESZKA) - Final Stool Laboratory Tests Past 24 Hrs 10/12/18 10/12/18 10/12/18 04:56 04:56 04:56 WBC 11.0 RBC 3.62 L Hgb 10.8 L Hct 32.1 L MCV 88.7 MCH 29.8 MCHC 33.6 RDW 13.6 RDW Differential 44.5 H Plt Count 190 MPV 9.9 Immature Gran % (Auto) 0.200 Neut % (Auto) 88.6 H Lymph % (Auto) 4.1 L [place] % (Auto) 7.0 Eos % (Auto) 0.0 Baso % (Auto) 0.1 Absolute Neuts (auto) 9.7 H Absolute Lymphs (auto) 0.45 L Total Counted Not Reportable Sodium 142 Potassium 3.5 Chloride 113 H Carbon Dioxide 21.0 Anion Gap 8 BUN 24 H Creatinine 1.08 H Estim Creat Clear Calc 42.78 Est GFR (MDRD) Af Amer 64 Est GFR (MDRD) Non-Af 53 L BUN/Creatinine Ratio 22.2 H Glucose 136 H Calcium 8.6 TSH Pending Free T4 Pending Clinical Impression(s) from Imaging Studies Small Bowel X-Ray 10/11/18 10:35 IMPRESSION: Distention of the stomach with the ingested Gastrografin. Small amount of oral contrast is seen within slightly dilated small bowel loops as described. Gastric outlet obstruction or gastroparesis should be ruled out. Electronically Signed: Bhanu Sellers, at 15:23 EDT , Service support , KUB X-Ray 10/12/18 02:05 IMPRESSION: The tip of the nasogastric tube is in the body of the stomach. Electronically Signed: Bhanu Sellers, at 8:44 EDT , Service support , Medical Necessity - Tobacco Use Smoking Status: Never smoker Assessment/Plan All Active Problems Small bowel obstruction (Acute) Altered mental status (Acute) Normochromic normocytic anemia (Acute) UTI (urinary tract infection) (Acute) Breast cancer, left (Acute) 72-year-old female ileus versus small bowel obstruction 1. Patient had contrast study that was done yesterday which did not show contrast progressing. I had planned on taking her for surgery today but on this morning's x-ray the contrast was completely in the colon and she did have a bowel movement this morning. On physical exam her abdomen is soft, nontender, nondistended. NG did put out bilious material. 2. The patient became more confused and disoriented. Given the fact that her white count did go up and she does have a left shift and her UA on admission showed bacteria. I am concerned that there may be some element of UTI going on. I started her on Cipro but that will be changed today as it is not helping. I did consult the hospitalist service for assistance with medical management. 3. Patient may be having an ileus from another infection versus partial small bowel obstruction. As the patient is in no distress with normal vitals and a nontender abdomen I will wait 24 more hours to make that decision. If the ceftriaxone helps and she continues to have bowel function I will see how she does. If anything changes overnight or fails to improve I will take her tomorrow for surgery. I discussed my plan with the patient's son and he is in agreement. Mateusz Carrillo MD Pager: [facility] [address] [place] [address], [address] [place] [address] Office:
[2018-10-12] MEDS: Ceftriaxone 1 GM/50 ML BAG IV (10:56)
[2018-10-12] MEDS: Menthol/Lanolin/Calamine/Znox 113 GM Tube 1 APPLIC TOPICAL ×2 (10:56→22:03)
[2018-10-12 11:21] LABS: Bedside Glucose 112 mg/dL (70-110)
[2018-10-12 11:51] LABS: Ammonia < 10.0 umol/L (11-32)
[2018-10-12 12:48] LABS: Hemoglobin A1c 5.3 % (4.2-6.3)
--- NOTE | 2018-10-12 13:53 | NURSING ---
Pacer management paper faxed to [facility] to be filled out and returned in preparation for possible surgery in AM.
[2018-10-12] MEDS: QUEtiapine 25 MG Tablet PO ×2 (16:49→22:04)
--- NOTE | 2018-10-12 17:17 | CHAPLAIN ---
patient was sleeping and FOOD AND NUTRITION TEACHER indicated that it would be better to try later for a visit
[2018-10-12 18:21] LABS: Bedside Glucose 107 mg/dL (70-110)
[2018-10-12 22:10] LABS: Bedside Glucose 92 mg/dL (70-110)
[2018-10-13] VITALS (9 sets, daily range): BP systolic 135–179; BP diastolic 68–84; PULSE 66–73; RESP 16–18; TEMP 36.4–37.3; O2SAT 93–98
[2018-10-13 01:06] LABS: Bedside Glucose 96 mg/dL (70-110)
[2018-10-13 04:59] LABS: Absolute Lymphocyte Count 0.63 X10^3/ul (0.83-4.51); Absolute Neutrophil Count 6.4 X10^3/uL (2.0-7.7); Basophil# 0.03 X10^3/uL; Basophil% 0.4 % (0-1); Eosinophil# 0.13 X10^3/uL; Eosinophils% 1.7 % (0-5); Hematocrit 29.5 % (37-47); Hemoglobin 9.8 g/dl (12.0-15.0); Lymphocyte # 0.63 X10^3/ul (4.0); Lymphocyte % 8.1 % (19-41); Mean Corp Hgb Conc 33.2 g/gl (32-36); Mean Corpuscular Hgb 29.7 pg (27.0-32.0); Mean Corpuscular Volume 89.4 fL (81-99); Mean Platelet Vol. 9.8 fl (6.2-12.0); Monocyte% 7.7 % (0-10); Neutrophil # 6.36 X10^3/uL (2.7-7.7); Neutrophil % 81.8 % (47-70); Platelet Count 143 K/mm3 (150-450); RBC Distribution Width CV 13.8 % (11.6-14.6); RBC Distribution Width SD 45.2 fl (35.1-43.9); White Blood Count 7.8 K/mm3 (4.4-11.0)
[2018-10-13 05:00] LABS: POSITIVE COUNT NO; POSITIVE DIFFERENTIAL NO; POSITIVE MORPHOLOGY NO
[2018-10-13] MEDS: hydrALAZINE 20 MG/ML Vial 5 MG IV (05:07)
[2018-10-13] MEDS: 0.9% NaCl Peripheral Flush Adult/Peds IV (05:07)
[2018-10-13 05:21] LABS: Anion Gap 7 (5-15); BUN 18 mg/dL (7-18); BUN/Creat Ratio 24.1 RATIO (10-20); Calcium,Total 8.2 mg/dL (8.5-10.1); Chloride 116 mmol/L (98-107); Creatinine, Serum 0.75 mg/dL (0.55-1.02); EST Glomerular Filtration Rate 81 mL/min (>60); Est Glom Filt Rate - Afr Amer 98 mL/min (>60); Glucose 90 mg/dL (74-106); Magnesium 2.2 mg/dL (1.6-2.6); Potassium 3.3 mmol/L (3.5-5.1); Sodium Level 145 mmol/L (136-145)
--- NOTE | 2018-10-13 05:55 | RAD_ITS ---
STUDY: X-RAY - ABDOMEN/PELVIS REASON FOR EXAM: Female, 72 years old. Ileus versus small bowel obstruction. TECHNIQUE: Two AP supine views of the abdomen and pelvis. COMPARISON: Comparison is made with prior examination of October 12, 2018. FINDINGS: The tip of the nasogastric tube is seen within the body of the stomach. Oral contrast is seen within the colon down to the rectum. The small bowel is not dilated at this time. The visualized liver, spleen and kidneys are grossly normal in size and morphology. Evidence of prior ventral hernia repair. There are diffuse degenerative changes of the visualized lumbar spine. RAD/Abdomen Single View (Portable) IMPRESSION: Oral contrast is seen within the entire colon. The small bowel is unremarkable at this time. Electronically Signed: Bhanu Sellers, at 15:59 EDT , Service support ,
[2018-10-13] MEDS: Potassium Chloride 10mEq/100mL 10 MEQ/100 ML IV.SOLN. 100 MEQ IV BOLUS (06:16)
[2018-10-13 06:21] LABS: Bedside Glucose 76 mg/dL (70-110)
--- NOTE | 2018-10-13 07:37 | PN.SURG_ITS ---
Patient Problems: Active and Suspected Problems Small bowel obstruction (Acute) Altered mental status (Acute) Normochromic normocytic anemia (Acute) UTI (urinary tract infection) (Acute) Breast cancer, left (Acute) 2010 treated with lobectomy, sentinel node biopsy, chemotherapy Subjective: Patient did much better last night. She reports no nausea. She has no abdominal pain this morning. She had several bowel movements overnight and yesterday afternoon. She feels very hungry. - Physical Exam General: Alert, Oriented x3, Cooperative, No apparent distress HEENT: Atraumatic Neck: No JVD Lungs: Normal air movement Cardiovascular: Regular rate, Regular Rhythm Abdomen: Soft, Non Tender, Non-Distended Vital Signs Temp Pulse Resp BP Pulse Ox 98.5 F 70 18 166/73 H 96 10/13/18 06:55 10/13/18 06:55 10/13/18 06:55 10/13/18 06:55 10/13/18 06:55 Oxygen Delivery Method Room Air Weight: 215 lb 6.266 oz Body Mass Index (BMI) 34.7 Intake and Output for Last 24 Hours 10/11/18 10/12/18 10/13/18 23:59 23:59 23:59 Intake Total 2399 / 2399 3021 / 3021 778.8 / 778.8 Output Total 1550 / 1550 100 / 100 Balance 2379 / 2379 1471 / 1471 678.8 / 678.8 Microbiology Past 72 Hours 10/12/18 09:57 Enteric Bacteriology - Final Stool 10/11/18 00:02 Urine Culture - Preliminary Urine, Catheterized Culture exhibits no growth. 10/12/18 09:57 Stool Lactoferrin - Final Stool 10/12/18 09:57 Stool Occult Blood (AGNIESZKA) - Final Stool Laboratory Tests Past 24 Hrs 10/12/18 10/12/18 10/12/18 04:56 04:56 10:55 WBC RBC Hgb Hct MCV MCH MCHC RDW RDW Differential Plt Count MPV Immature Gran % (Auto) Neut % (Auto) Lymph % (Auto) [place] % (Auto) Eos % (Auto) Baso % (Auto) Absolute Neuts (auto) Absolute Lymphs (auto) Total Counted Sodium Potassium Chloride Carbon Dioxide Anion Gap BUN Creatinine Estim Creat Clear Calc Est GFR (MDRD) Af Amer Est GFR (MDRD) Non-Af BUN/Creatinine Ratio Glucose Hemoglobin A1c 5.3 Lactic Acid Cancelled Calcium Magnesium Ammonia TSH 0.90 Free T4 1.22 10/12/18 10/12/18 10/13/18 10:55 14:25 04:44 WBC 7.8 RBC 3.30 L Hgb 9.8 L Hct 29.5 L MCV 89.4 MCH 29.7 MCHC 33.2 RDW 13.8 RDW Differential 45.2 H Plt Count 143 L MPV 9.8 Immature Gran % (Auto) 0.300 Neut % (Auto) 81.8 H Lymph % (Auto) 8.1 L [place] % (Auto) 7.7 Eos % (Auto) 1.7 Baso % (Auto) 0.4 Absolute Neuts (auto) 6.4 Absolute Lymphs (auto) 0.63 L Total Counted Not Reportable Sodium Potassium Chloride Carbon Dioxide Anion Gap BUN Creatinine Estim Creat Clear Calc Est GFR (MDRD) Af Amer Est GFR (MDRD) Non-Af BUN/Creatinine Ratio Glucose Hemoglobin A1c Lactic Acid 1.0 Calcium Magnesium Ammonia < 10.0 L TSH Free T4 10/13/18 04:44 WBC RBC Hgb Hct MCV MCH MCHC RDW RDW Differential Plt Count MPV Immature Gran % (Auto) Neut % (Auto) Lymph % (Auto) [place] % (Auto) Eos % (Auto) Baso % (Auto) Absolute Neuts (auto) Absolute Lymphs (auto) Total Counted Sodium 145 Potassium 3.3 L Chloride 116 H Carbon Dioxide 22.0 Anion Gap 7 BUN 18 Creatinine 0.75 Estim Creat Clear Calc 46.20 Est GFR (MDRD) Af Amer 98 Est GFR (MDRD) Non-Af 81 BUN/Creatinine Ratio 24.1 H Glucose 90 Hemoglobin A1c Lactic Acid Calcium 8.2 L Magnesium 2.2 Ammonia TSH Free T4 POC Glucose 10/13/18 10/13/18 10/12/18 05:57 00:55 22:01 POC Glucose 76 96 92 10/12/18 10/12/18 18:06 11:16 POC Glucose 107 112 H Medical Necessity - Tobacco Use Smoking Status: Never smoker Assessment/Plan All Active Problems Small bowel obstruction (Acute) Altered mental status (Acute) Normochromic normocytic anemia (Acute) UTI (urinary tract infection) (Acute) Breast cancer, left (Acute) 72-year-old female with gastroenteritis 1. The patient had several bowel movements and x-ray this morning shows contrast in the descending colon with no dilated small bowel loops. NG had minimal output. The patient is actually alert and oriented x3 this morning. She seems much better and she was able to sleep last night. She has no abdominal pain and no distention of her abdomen. This was likely gastroenteritis from the canned meat that she ate as her white count is normal again today. The nurses report that her urine still has a strong smell but urine culture has not grown anything. 2. I will remove her NG tube and her restraints. She can start on a clear liquid diet and advance as tolerated to a regular diet. I have also decreased her IV fluid rate and changed her Protonix to p.o. As long as she tolerates a regular diet with no abdominal pain she can be discharged home later today as long as it is okay with the hospitalist service and I have asked PT/OT to see the patient for an assessment as well for going home to live on her own as she has had a large change in life lately and her son admits that she has been getting more confused lately. Mateusz Carrillo MD Pager: [facility] [address] [place] [address], [address] [place] [address] Office:
--- NOTE | 2018-10-13 07:42 | NURSING ---
NG tube removed at this time. Pt tolerated well. Restraints removed at this time. Jello & water provided. BARTENDERS remains in room with patient.
[2018-10-13] MEDS: 0.9% Normal Saline 1,000 ML 50 ML IV (08:00)
[2018-10-13] MEDS: Menthol/Lanolin/Calamine/Znox 113 GM Tube 1 APPLIC TOPICAL (09:08)
[2018-10-13] MEDS: Ceftriaxone 1 GM/50 ML BAG IV (09:08)
[2018-10-13] MEDS: Losartan Potassium 50 MG Tablet PO (09:41)
[2018-10-13] MEDS: Pantoprazole Sodium 40 MG Tablet PO (09:41)
[2018-10-13] MEDS: Atenolol 50 MG Tablet PO (09:41)
--- NOTE | 2018-10-13 11:34 | CASEMGMT ---
GABY ESPINOZA assessment: Face to Face with patient for initial transition planning/care coordination assessment. RN ALEXIS introduced self and role at [facility], pt voices understanding and consents to assessment at this time. Pt is sitting up in the chair in no distress at this time eating yogurt without difficulty. Pt is A/Ox4 at this time and answers all questions appropriately at this time. Care providers, pharmacy, and demographics verified at this time. PCP: Jeremy Specialists: Aleks, onc; Minerva, surg Preferred Pharmacy: [facility] Insurance: MCR A/B, CHARITY Prescription Benefit: CHARITY Living Will/HPOA: Pt states has LW/HPOA and is aware that they are not on file at [facility] at this time. Pt states that her son, Mikael Montero, is HPOA. LNOK: Mikael Montero, son/HPOA Living Arrangements: Pt states lives alone in 1 story apt complex with multiple neighbors that 'check in on me.' Pt states no concerns at home at this time. Pt states is independent with ADL's. Transportation: Pt states drives self and states no transportation concerns at this time. DME/HHC: Pt states has the following DME: cane, rollater, and grab bars. Pt states no need for any further DME at this time. Pt states no hx of HHC or SNF in the past. Pt does states that she has been connected with [facility] agency on aging in [facility] and all paperwork/assessment has been completed. Pt states is just waiting to see how many aide hours she will get. Mae URBANO aware, voices understanding. This RN CM to f/u with therapy regarding recommendations. Pt states no concerns with going home at time of discharge. Pt states is retired. Pt states does not smoke or drink ETOH. Pt states no further concerns/needs at this time. CM to follow for any further discharge planning/needs. Advised pt to ask for CM if any further questions/concerns/needs arise, voices understanding. Pt Goal: Home Plan: Home, pending therapy recommendations. [place] GABY ESPINOZA
[2018-10-13 11:41] LABS: Bedside Glucose 103 mg/dL (70-110)
--- NOTE | 2018-10-13 15:05 | DCINST_ITS ---
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, status post lumpectomy and chemotherapy Uterine cancer (Chronic) Status post ALEXIS/BSO followed by radiation Vitamin D deficiency (Chronic) Breast cancer, left (Acute) 2010 treated with lobectomy, sentinel node biopsy, chemotherapy Renal cyst, left (Chronic) Right renal mass (Chronic) You will use the following diet at home:: Regular Your food should be the consistency of: Regular Your liquids should be the consistency of: Regular/Thin Discharge Activity: Return to Normal Activity Call your doctor if you observe: Fever of 101 or Higher, Coldness, Increased Pain, Numbness or Tingling, Inability to urinate Allergies/Adverse Reactions: Allergies celecoxib [From Celebrex] Allergy (Verified 10/10/18 22:56) Anaphylaxis Penicillins Allergy (Verified 10/10/18 22:56) Rash rofecoxib [From Vioxx] Allergy (Verified 10/10/18 22:56) Anaphylaxis Medications to take at Discharge Atenolol 50 mg PO DAILY 10/28/15 Aspirin [Aspirin, Baby] 81 mg PO DAILY@0800 04/08/16 Losartan/Hydrochlorothiazide [Losartan-Hctz 50-12.5 mg Tab] 1 each PO DAILY 04/08/16 Tamoxifen Citrate [Nolvadex] 20 mg PO DAILY 04/08/16 Cephalexin [Keflex] 500 mg PO Q12 5 Days #10 capsule 10/13/18 The following prescriptions were given: Cephalexin [Keflex] 500 mg PO Q12 5 Days #10 capsule Primary Care Physician: Chavez Luna MD [Primary Care Provider] - Test Results: Test results from this visit will be discussed in further detail at your follow- up appointment, if applicable. Please Follow Up With: Mateusz Carrillo MD When: as needed
--- NOTE | 2018-10-13 15:05 | PCM.DC.SUM ---
Discharge Date and Diagnosis - Problem List Patient Problems: Active and Suspected Problems Small bowel obstruction (Acute) Altered mental status (Acute) Normochromic normocytic anemia (Acute) UTI (urinary tract infection) (Acute) Breast cancer, left (Acute) 2010 treated with lobectomy, sentinel node biopsy, chemotherapy Date of Admission: 10/10/18 Date of Discharge: 10/13/18 - Primary Discharge Diagnosis Active and Suspected Problems Small bowel obstruction (Acute) Altered mental status (Acute) Normochromic normocytic anemia (Acute) UTI (urinary tract infection) (Acute) Breast cancer, left (Acute) 2010 treated with lobectomy, sentinel node biopsy, chemotherapy - Secondary Discharge Diagnosis Chronic Problems Breast cancer in situ (Chronic) 2014, 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 Findings suggestive of a right sided staghorn calculus. Electronically Signed: Bhanu Sellers, at 9:16 EDT , Service support , Small Bowel X-Ray 10/11/18 10:35 IMPRESSION: Distention of the stomach with the ingested Gastrografin. Small amount of oral contrast is seen within slightly dilated small bowel loops as described. Gastric outlet obstruction or gastroparesis should be ruled out. Electronically Signed: Bhanu Sellers, at 15:23 EDT , Service support , KUB X-Ray 10/12/18 02:05 IMPRESSION: The tip of the nasogastric tube is in the body of the stomach. Electronically Signed: Bhanu Sellers, at 8:44 EDT , Service support , KUB X-Ray 10/12/18 05:55 IMPRESSION: Oral contrast is seen throughout the colon. Residual contrast is seen within slightly dilated small bowel loops. This may represent an ileus pattern. Electronically Signed: Bhanu Silvadebra, at 13:33 EDT , Service support , Chest X-Ray 10/12/18 10:02 IMPRESSION: 1. Cardiac pacemaker. 2. Enteric tube as described. 3. Acute versus chronic interstitial changes. 4. Mild hilar prominence. Question lymphadenopathy. Electronically Signed: Kana Nava, at 14:10 EDT Tel [phone], Service support , Hospitalist Operations: None Procedures: None Summary of Care Provided: The patient is a 72 year old F who was admitted with abdominal pain and dilated small bowel from an outside hospital. The patient continued to have abdominal pain and a small bowel follow-through was performed. The following morning the contrast admitted to the colon and her abdomen was soft but the patient did have vomiting and NG was placed. At that time her abdomen was soft and nontender. Patient was started on an antibiotic for a UTI based on UA. Patient also reported that she ate some bad meat the day this started. It is questionable if she had an ileus from UTI versus partial small bowel obstruction that resolved versus gastroenteritis. The urine culture did grow lactobacillus and I will send her home on Keflex for this. PT OT saw the patient and deemed that she was okay to go home. Patient tolerated a clear liquid diet and advance to regular diet and tolerated this with no abdominal pain and had several bowel movements the day of discharge. Currently she is having no abdominal pain and tolerating a regular diet. Patient Problems: Active and Suspected Problems Small bowel obstruction (Acute) Altered mental status (Acute) Normochromic normocytic anemia (Acute) UTI (urinary tract infection) (Acute) Breast cancer, left (Acute) 2010 treated with lobectomy, sentinel node biopsy, chemotherapy - Physical Exam Vital Signs Temp Pulse Resp BP Pulse Ox 98.6 F 73 18 159/84 H 96 10/13/18 10:45 10/13/18 11:04 10/13/18 10:45 10/13/18 10:45 10/13/18 10:45 Oxygen Delivery Method Room Air Weight: 215 lb 6.266 oz Body Mass Index (BMI) 34.7 Intake and Output for Last 24 Hours 10/11/18 10/12/18 10/13/18 23:59 23:59 23:59 Intake Total 2399 / 2399 3021 / 3021 778.8 / 778.8 Output Total 1550 / 1550 100 / 100 Balance 2379 / 2379 1471 / 1471 678.8 / 678.8 Microbiology Past 72 Hours 10/11/18 00:02 Urine Culture - Preliminary Urine, Catheterized Lactobacillus sp. 10/12/18 09:57 Enteric Bacteriology - Final Stool 10/12/18 09:57 Stool Lactoferrin - Final Stool 10/12/18 09:57 Stool Occult Blood (AGNIESZKA) - Final Stool Laboratory Tests Past 24 Hrs 10/12/18 10/13/18 10/13/18 14:25 04:44 04:44 WBC 7.8 RBC 3.30 L Hgb 9.8 L Hct 29.5 L MCV 89.4 MCH 29.7 MCHC 33.2 RDW 13.8 RDW Differential 45.2 H Plt Count 143 L MPV 9.8 Immature Gran % (Auto) 0.300 Neut % (Auto) 81.8 H Lymph % (Auto) 8.1 L [place] % (Auto) 7.7 Eos % (Auto) 1.7 Baso % (Auto) 0.4 Absolute Neuts (auto) 6.4 Absolute Lymphs (auto) 0.63 L Total Counted Not Reportable Sodium 145 Potassium 3.3 L Chloride 116 H Carbon Dioxide 22.0 Anion Gap 7 BUN 18 Creatinine 0.75 Estim Creat Clear Calc 46.20 Est GFR (MDRD) Af Amer 98 Est GFR (MDRD) Non-Af 81 BUN/Creatinine Ratio 24.1 H Glucose 90 Lactic Acid 1.0 Calcium 8.2 L Magnesium 2.2 POC Glucose 10/13/18 10/13/18 10/13/18 11:34 05:57 00:55 POC Glucose 103 76 96 10/12/18 10/12/18 22:01 18:06 POC Glucose 92 107 Discharge Activity: Return to Normal Activity Call your doctor if you observe: Fever of 101 or Higher, Coldness, Increased Pain, Numbness or Tingling, Inability to urinate Home Medications: Medications to take at Discharge Atenolol 50 mg PO DAILY 10/28/15 Aspirin [Aspirin, Baby] 81 mg PO DAILY@0800 04/08/16 Losartan/Hydrochlorothiazide [Losartan-Hctz 50-12.5 mg Tab] 1 each PO DAILY 04/08/16 Tamoxifen Citrate [Nolvadex] 20 mg PO DAILY 04/08/16 Cephalexin [Keflex] 500 mg PO Q12 5 Days #10 capsule 10/13/18 Following Prescrptions Were Given to Patient: Cephalexin [Keflex] 500 mg PO Q12 5 Days #10 capsule Primary Care Physician: Chavez Luna MD [Primary Care Provider] - Please Follow Up With: Mateusz Carrillo MD When: as needed Medical Necessity - Tobacco Use Smoking Status: Never smoker Meaningful Use Info Meaningful Use Diagnoses (Choose all that apply): None applicable
--- NOTE | 2018-10-13 15:06 | CASEMGMT ---
YOLIE called [facility] Agency on Aging for [facility]. YOLIE was told that according to their records patient needs to schedule an appt with her PCP and then let them know about her appt. This needs to be done before they can move forward. YOLIE will notify patient. Halina GARCIA MSW
--- NOTE | 2018-10-13 15:31 | CHAPLAIN ---
Type of Pastoral Visit _x__ Initial Visit ___ Follow-up Visit ___ On-call Visit ___ General Patient Visit ___ Spiritual Assessment ___ Family Conference ___ Bereavement ___ Rapid Response ___ Code Blue ___ Other (describe below) Pastoral Care Referral From _x__ Patient ___ Family ___ Nurse ___ Physician ___ Pathology Manager ___ Orthodontic Laboratory Technician ___ Other (describe below) Sacrament/Intervention _x__ Active listening ___ Anointing ___ Pentecostal _x__ Bereavement ___ Communion _x__ Amna exploration ___ _x__ Life review _x__ Prayer ___ Reconciliation ___ Sacrament of Sick _x__ Supportive presence ___ Wedding ___ Other (describe below) Pastoral Comments patient expresses anxiety over what the 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
--- NOTE | 2018-10-13 15:34 | CASEMGMT ---
Therapy is recommending further skilled therapy for pt at this time and pt is agreeable to [facility] for PT/OT at this time and states she would like [facility] in [place]. Call to [facility] and per Vivek, they should be able to take pt at this time. Referral faxed with order at this time. Pt voices no further questions/concerns/needs at this time. Irving GRIFFIN CM
--- NOTE | 2018-10-13 15:40 | PN_ITS ---
Patient Problems: Active and Suspected Problems Small bowel obstruction (Acute) Altered mental status (Acute) Normochromic normocytic anemia (Acute) UTI (urinary tract infection) (Acute) Breast cancer, left (Acute) 2010 treated with lobectomy, sentinel node biopsy, chemotherapy Subjective: All events of the past 24 hours been reviewed. She is afebrile today with stable vital signs. Systolic blood pressure is mildly elevated but she is asymptomatic. She ate a cheeseburger and potato chips for lunch and has no nausea, vomiting or abdominal pain. She is alert and appropriate today. All lab was personally reviewed. Hemoglobin is 9.8 today down from 10.2 at admission likely due to hydration and some hemoconcentration at admission secondary to dehydration. White blood cell count is 7.8 today. Potassium is mildly decreased at 3.3 and was supplemented. BUN is 18 the creatinine is 0.75. She does have trouble with her memory........she can not remember her friend's phone number in [place] and she does not have a ride home. No family locally. She can tell me today that she has had the same reaction to morphine in the past. - Physical Exam General: Alert, Oriented x3, Cooperative, No apparent distress HEENT: Atraumatic, PERRLA Oral: Moist Mucosa, No Gingival or Mucosal Lesions/ Ulcerations Neck: No JVD, Trachea Midline Lungs: Clear to auscultation Cardiovascular: Regular rate, Regular Rhythm - she is completely paced, Normal S1, Normal S2, No rub noted, No Gallop Abdomen: Bowel Sounds Present, Soft, Non Tender, Non-Distended Extremities: No edema Skin: No rashes, No breakdown Neurological: Cranial nerves II-XII grossly intact, Neuro grossly intact Psych/Mental Status: Normal Affect, Appropriate Vital Signs Temp Pulse Resp BP Pulse Ox 98.6 F 73 18 159/84 H 96 10/13/18 10:45 10/13/18 11:04 10/13/18 10:45 10/13/18 10:45 10/13/18 10:45 Oxygen Delivery Method Room Air Weight: 215 lb 6.266 oz Body Mass Index (BMI) 34.7 Intake and Output for Last 24 Hours 10/11/18 10/12/18 10/13/18 23:59 23:59 23:59 Intake Total 2399 / 2399 3021 / 3021 1418.8 / 1418.8 Output Total 1550 / 1550 100 / 100 Balance 2379 / 2379 1471 / 1471 1318.8 / 1318.8 Microbiology Past 72 Hours 10/11/18 00:02 Urine Culture - Preliminary Urine, Catheterized Lactobacillus sp. 10/12/18 09:57 Enteric Bacteriology - Final Stool 10/12/18 09:57 Stool Lactoferrin - Final Stool 10/12/18 09:57 Stool Occult Blood (AGNIESZKA) - Final Stool Laboratory Tests Past 24 Hrs 10/13/18 10/13/18 04:44 04:44 WBC 7.8 RBC 3.30 L Hgb 9.8 L Hct 29.5 L MCV 89.4 MCH 29.7 MCHC 33.2 RDW 13.8 RDW Differential 45.2 H Plt Count 143 L MPV 9.8 Immature Gran % (Auto) 0.300 Neut % (Auto) 81.8 H Lymph % (Auto) 8.1 L [place] % (Auto) 7.7 Eos % (Auto) 1.7 Baso % (Auto) 0.4 Absolute Neuts (auto) 6.4 Absolute Lymphs (auto) 0.63 L Total Counted Not Reportable Sodium 145 Potassium 3.3 L Chloride 116 H Carbon Dioxide 22.0 Anion Gap 7 BUN 18 Creatinine 0.75 Estim Creat Clear Calc 46.20 Est GFR (MDRD) Af Amer 98 Est GFR (MDRD) Non-Af 81 BUN/Creatinine Ratio 24.1 H Glucose 90 Calcium 8.2 L Magnesium 2.2 POC Glucose 10/13/18 10/13/18 10/13/18 11:34 05:57 00:55 POC Glucose 103 76 96 10/12/18 10/12/18 22:01 18:06 POC Glucose 92 107 Medical Necessity - Tobacco Use Smoking Status: Never smoker Assessment/Plan All Active Problems Small bowel obstruction (Acute) Altered mental status (Acute) Normochromic normocytic anemia (Acute) UTI (urinary tract infection) (Acute) Breast cancer, left (Acute) Impressions 1. pSBO vs ileus - being managed by Dr. Carrillo - ileus-resolved 2. UTI - lactobacillus 3. delirium due to adverse drug effect 4. History of left breast cancer diagnosed in 2010 and right breast cancer diagnosed in 2014. 5. History of uterine cancer-status post ALEXIS/BSO 6. Diabetes mellitus type 2 ? - HGBA1C is 5.3 and she is on no hypoglycemic agents as an OP? 7. Hypertension 8. Normochromic normocytic anemia of uncertain etiology 9. Hyperlipidemia 10. Dehydration 11. S/P PM for degree heart block DC'd by Dr. Carrillo on Keflex for [facility] arranged She is in the process of getting signed up for passport
--- NOTE | 2018-10-13 15:45 | CASEMGMT ---
Patient needed a ride home. SW spoke with hospital van and they can take her home. SW let patient know. SW also let patient know that national secretary made an appt for her with her PCP. SW told her SW will let AAALICE know as well. SW left a message for MARIO and asked for a return call. Halina GLASER
--- NOTE | 2018-10-14 14:27 | CASEMGMT ---
GABY ESPINOZA Discharge F/U Phone Call LACAshley: Chika Strata: 3 Discharge date: 10/13/18 Call date: 10/14/18 Call time: 1427 Duration: 5 minutes Admission dx: SBO Pt states has been doing 'good' since discharge, states has some back pain and still having diarrhea but states her friend went to get her OTC diarrhea med. Pt is A/Ox4 at this time and answers all questions appropriately at this time. Pt states that she had 'a lot of visitors last night and I even walked [facility] Pt states no questions regarding discharge instructions/medications at this time. Pt states plans to keep f/u appt on wednesday with PCP. Pt states no suggestions for [facility] at this time and states 'I was treated so nice and I really, really, really appreciate everyone/everything.' Pt voices no further questions/concerns/needs at this time. [place] GABY ESPINOZA
--- NOTE | 2018-10-19 14:45 | CASEMGMT ---
YOLIE received a call from Eduarda at [facility] on [facility]. She asked if patient had a DrDonovan's appt scheduled. Towel Cabinet Repairer scheduled appt for 10-17. YOLIE spoke with the 's office and patient canceled her appt and has not rescheduled. YOLIE let Eduarda know this information. Halina GARCIA MSW
== END 2018-10-13 16:10 | disposition home or self-care (01) | DRG 389 ==
LOC: ED 23:05 → PCU 10-11 00:02
PROVIDERS: Internal Medicine; Admitting Provider Surgery; Emergency Provider Emergency Medicine; Family Provider Family Medicine; PCP Family Medicine; Visit Provider Surgery
DX: K56.600 Partial intestinal obstruction, unspecified as to cause (principal); N39.0 Urinary tract infection, site not specified; K56.7 Ileus, unspecified; Z90.710 Acquired absence of both cervix and uterus; K52.9 Noninfective gastroenteritis and colitis, unspecified; Z85.3 Personal history of malignant neoplasm of breast; Z90.49 Acquired absence of other specified parts of digestive tract; Z85.42 Personal history of malignant neoplasm of other parts of uterus; E86.0 Dehydration; E78.5 Hyperlipidemia, unspecified; D64.9 Anemia, unspecified; E11.9 Type 2 diabetes mellitus without complications; B96.89 Other specified bacterial agents as the cause of diseases classified elsewhere; E55.9 Vitamin D deficiency, unspecified; Z78.1 Physical restraint status; E66.9 Obesity, unspecified; Z68.34 Body mass index [BMI] 34.0-34.9, adult
CPT/HCPCS: 36415; 71045; 74018; 74250; 80048; 80053; 81001; 82140; 82274; 82962; 83036; 83605; 83630; 83735; 84100; 84439; 84443; 85025; 87040; 87086; 87088; 87506; 93005; 97162; 97166; 99285; J7030; A4216; J0744; J2405